=== PATIENT | female | born 1960 | race Caucasian/White ===

== ENCOUNTER 2024-12-08 13:03 | Emergency (ER) | payer MEDICAID, SELFPAY ==
[2024-12-08] VITALS (8 sets, daily range): BP systolic 112–172; BP diastolic 69–99; PULSE 75–90; RESP 15–88; TEMP 36.6–37.1; O2SAT 96–100; BMI 36.0
--- NOTE | 2024-12-08 13:11 | EDNOTE_ITS ---
ED General RME/HPI General Chief complaint: Headache Stated complaint: HEADACHE Time Seen by Provider: 12/08/24 13:08 Arrival date/time: 12/08/24 13:03 Limitations: no limitations RME / HPI RME / HPI narrative: DR. CARRIZALES MAIN ED EVALUATION: 64 year old female with past medical history significant for COPD, current smoker, on home oxygen, and does not exercise presents to the Emergency Department [facility] with complaints of headache and generalized weakness. Family called an ambulance because they had trouble waking the patient up, longer than a minute, which is unusual for her. No shortness of breath or chest pain. No nausea, vomiting, diarrhea, or constipation. No other symptoms reported at this time. Related Data Previous Rx's ?Medication ?Instructions ?Recorded albuterol sulfate 90 mcg/actuation 2 puff inhalation Q 6H PRN 12/08/24 aerosol inhaler shortness of breath or wheez ing #8.5 grams levofloxacin 500 mg tablet 500 mg PO Q24H pneumonia 10 days 12/08/24 #10 tabs Allergies Allergy/AdvReac Type Severity Reaction Status Date / Time No Known Allergies Allergy Verified 12/08/24 13:11 Review of Systems Review of Systems Systems Reviewed: All systems reviewed, normal except as documented Past Medical History Social History SMOKING STATUS: Current every day smoker SUBSTANCE USE: does not use ALCOHOL: Never ED Exam General Limitations: Present no limitations General appearance: Present alert, in no apparent distress and other (well developed, well nourished, mildly pale) Head Head exam: Present atraumatic, normocephalic and normal inspection Eye Eye exam: Present normal appearance, PERRL and EOMI ENT ENT exam: Present normal exam, normal oropharynx and mucous membranes moist Neck Neck exam: Present normal inspection, full ROM and trachea midline Chest Chest inspection: Present symmetric chest wall rise and other (barrel chest) Respiratory Respiratory exam: Present normal lung sounds bilaterally; Absent respiratory distress, wheezes, stridor or accessory muscle use Cardiovascular Cardiovascular exam: Present regular rate, normal rhythm and normal heart sounds Abdominal Exam Abdominal exam: Present soft and normal bowel sounds Extremities Exam Extremities exam: Present normal inspection and full ROM Back Exam Back exam: Present normal inspection and full ROM Neurological Exam Neurological exam: Present alert, oriented X3 and CN II-XII intact Psychiatric Psychiatric exam: Present normal affect and normal mood Skin Skin exam: Present warm, dry, intact and normal color Course Quality Measures none Orders Category Date Time Status Cardiovascular Disease Specialist NOW Care 12/08/24 13:14 Active Continuous Pulse Oximetry NOW Care 12/08/24 13:14 Completed EKG (ED ONLY) *Do not use* NOW Care 12/08/24 13:14 Completed Insert IV NOW Care 12/08/24 13:[address] head/brain wo con Stat Exams 12/08/24 13:14 Completed EKG (ED Only) Stat Exams 12/08/24 13:14 Draft XR chest 1V portable Stat Exams 12/08/24 13:14 Completed CBC Stat Lab 12/08/24 14:05 Completed Comprehensive Metabolic Panel Stat Lab 12/08/24 16:14 Completed Partial Thromboplastin Time Stat Lab 12/08/24 14:05 Completed Prothrombin Time with INR Stat Lab 12/08/24 14:05 Completed Troponin I Stat Lab 12/08/24 16:14 Completed Urinalysis Stat Lab 12/08/24 13:14 Ordered ALBUTEROL RT 3ml [Proventil Rt 3ml] Med 12/08/24 16:13 Discontinued 2.5 mg INH X1 ONE Azithromycin Inj [Zithromax Inj] 500 mg Med 12/09/24 14:00 Pending Sodium Chloride 0.9% 250 ml [Ns] 250 ml IV QDAY@1400 Azithromycin Inj [Zithromax Inj] 500 mg Med 12/08/24 16:30 Active Sodium Chloride 0.9% 250 ml [Ns] 250 ml IV X1 Ketorolac Inj [Toradol Inj] Med 12/08/24 13:14 Discontinued 15 mg IVP X1 ONE Morphine Inj Med 12/08/24 13:14 Discontinued 2 mg IVP X1 ONE Ondansetron Inj [Zofran Inj] Med 12/08/24 13:14 Discontinued 4 mg IVP X1 ONE Sodium Chloride 0.9% 1000 ml [Ns] 1,000 ml Med 12/08/24 13:14 Active IV 100 mls/hr cefTRIAXone [Rocephin] 2 gm Med 12/08/24 16:30 Active SODIUM CHLORIDE 0.9% (Popper) [Ns 0.9% (P)] 50 ml IV X1 cefTRIAXone/D5w 2gm [Rocephin/d5w 2gm] Med 12/09/24 14:00 Active 2 gm in 50 ml IV QDAY@1400 Oxygen Delivery NOW RT 12/08/24 13:14 Active Vital Signs Vital signs: Vital Signs Temperature 98.5 F 12/08/24 13:06 Pulse Rate 79 12/08/24 13:06 Respiratory Rate 18 12/08/24 13:06 Blood Pressure 144/85 H 12/08/24 13:06 Pulse Oximetry (%) 98 12/08/24 13:06 Oxygen Delivery Method Nasal Cannula 12/08/24 13:06 Oxygen Flow Rate 2 12/08/24 13:06 Discharge Plan Plan Patient Disposition: HOME (Self Care) Patient condition on transfer: Stable Prescriptions/Referrals Prescriptions/Med Rec: New levofloxacin 500 mg tablet 500 mg PO Q24H MDD 1 10 Days Qty: 10 0RF albuterol sulfate 90 mcg/actuation HFA aerosol inhaler 2 puff inhalation Q6H MDD 8 puffs PRN (Reason: shortness of breath or wheezing) Qty: 8.5 0RF Referrals: Russell Abad MD [Primary Care Provider] - In 1 week Problem List Clinical Impression: Pneumonia, COPD (chronic obstructive pulmonary disease) Patient/Caregiver Discharge Instructions Education Materials: ED Pneumonia (Adult) Additional Instructions: Please follow-up with your primary care physician within 2-3 days. Return to the Emergency Department as needed. Print Language: Danish Stand Alone Forms: [employer] Award Info., Patient Portal Info Letter MDM Narrative MDM hospital course: IAshli, am scribing for and in the presence of Dr. Carrizales. Patient has bilateral perihilar pneumonia. Patient requests to go home. Will start her on Levaquin. Her O2 sat is 100% on her home oxygen, usual 3 L/min. Will be discharged home with antibiotics. Clinical Information Provided by patient and EMS Medical Records Reviewed [facility] and EMS Meds/Rx Considered, not Ordered None Labs/Rad/Tests considered, not Ordered None Chronic Illness/Social Conditions Add or document further as needed: COPD, current smoker, on home oxygen, and does not exercise. EKG EKG Interpretation narrative: My interpretation: EKG performed at 1440 hours, sinus rhythm, rate 77, no acute changes, VA interval 160 ms, QRS duration 93 ms, QT/QTc 396/428, P-R-T axis 49, 33, 54 Lab Interpretation Labs: see narrative above Imaging Imaging interpretation: see narrative above Radiology reports / interpretation(s): Procedure(s): CT head/brain wo con Accession Number(s): [id number] cc: Del Carrizales MD; Wellington Bragg MD; Russell Abad MD~ Examination: CT brain head without contrast. 2-D sagittal coronal reconstructions Date and time of exam:December 08, 2024, 1401 hrs. Indications: Headaches today Comparison: October 15, 2024 1337 hrs. CTDI: vol (mGy):45.7 DLP: (mGycm):863 Technique: Multiple CT axial sections of the brain have been obtained, 5 mm slice thickness. Contrast has not been administered. 2-D sagittal, coronal reconstructions have been obtained Low dose protocols were performed. One or more of the following dose reduction techniques were used; automated exposure control, adjustment of the mA and/or KV according to patient size, use of iterative reconstruction technique. Findings: No significant ventricular enlargement. Intra-axial or extra-axial hemorrhage density is not seen. No mass effect or midline shift Basal cisterns are not remarkable. Fourth ventricle is midline. Cranial vault intact. Left maxillary sinusitis Impression: Negative for acute hemorrhage, mass effect or midline shift Dictated By: Wellington Bragg MD Procedure(s): XR chest 1V portable Accession Number(s): [id number] cc: Del Carrizales MD; Wellington Bragg MD; Russell Abad MD~ Examination: AP chest single view Technique: AP portable semiupright chest single view Date and time: December 08, 2024, 1346 hrs. Indications: Fever headache today Findings: Suspicious for early bilateral perihilar pneumonia Mild enlargement cardiac contour. Mild vascular congestion. Surgical clips soft tissue neck Impression: Suspicious for early bilateral perihilar pneumonia Dictated By: Wellington Bragg MD Medication Administration(s) Medication Administration History Sodium Chloride (Ns) 1,000 mls @ 100 mls/hr IV .Q10H ONE Stop: 12/08/24 23:13 Last Infusion: 12/08/24 15:42 Dose: Infused Documented By: Admin: 12/08/24 14:15 Dose: 100 mls/hr Documented By: YOSVANY Ceftriaxone Sodium/Dextrose (Rocephin/D5w 2gm) 2 gm in 50 mls @ 100 mls/hr IV QDAY@1400 CARO Stop: 12/16/24 13:59 Azithromycin 500 mg/ Sodium (Chloride) 250 mls @ 250 mls/hr IV QDAY@1400 CARO Stop: 12/16/24 13:59 Ceftriaxone Sodium 2 gm/ (Sodium Chloride) 50 mls @ 100 mls/hr IV X1 ONE Stop: 12/08/24 16:59 Last Admin: 12/08/24 16:50 Dose: 100 mls/hr Documented By: AUSTIN Azithromycin 500 mg/ Sodium (Chloride) 250 mls @ 250 mls/hr IV X1 ONE Stop: 12/08/24 17:29 Discontinued Medications Albuterol (Albuterol Rt 2.5 Mg/3 Ml Nebu) 2.5 mg INH X1 ONE Stop: 12/08/24 16:14 Last Admin: 12/08/24 16:21 Dose: Not Given Documented By: CLAUDIA Non-Admin Reason: Discontinued Ketorolac Tromethamine (Ketorolac Inj 30 Mg/Ml Vial) 15 mg IVP X1 ONE Stop: 12/08/24 13:15 Last Admin: 12/08/24 14:15 Dose: 15 mg Documented By: YOSVANY Morphine Sulfate (Morphine Sulf Inj 10 Mg/Ml Vial) 2 mg IVP X1 ONE Stop: 12/08/24 13:15 Last Admin: 12/08/24 14:16 Dose: 2 mg Documented By: YOSVANY Ondansetron HCl (Ondansetron Inj 2 Mg/Ml Inj 2 Ml) 4 mg IVP X1 ONE; Protocol Stop: 12/08/24 13:15 Last Admin: 12/08/24 14:15 Dose: 4 mg Documented By: YOSVANY Diagnosis Differential diagnosis: TIA, migraine, dehydration, electrolyte imbalance Most likely dx, and/or detailed dx discussion: Bilateral perihilar pneumonia Dispositon Disposition: Discharge Home
--- NOTE | 2024-12-08 13:14 | EKG_ITS ---
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
--- NOTE | 2024-12-08 13:14 | XR_ITS ---
Examination: CT brain head without contrast. 2-D sagittal coronal reconstructions Date and time of exam:December 08, 2024, 1401 hrs. Indications: Headaches today Comparison: October 15, 2024 1337 hrs. CTDI: vol (mGy):45.7 DLP: (mGycm):863 Technique: Multiple CT axial sections of the brain have been obtained, 5 mm slice thickness. Contrast has not been administered. 2-D sagittal, coronal reconstructions have been obtained Low dose protocols were performed. One or more of the following dose reduction techniques were used; automated exposure control, adjustment of the mA and/or KV according to patient size, use of iterative reconstruction technique. Findings: No significant ventricular enlargement. Intra-axial or extra-axial hemorrhage density is not seen. No mass effect or midline shift Basal cisterns are not remarkable. Fourth ventricle is midline. Cranial vault intact. Left maxillary sinusitis Impression: Negative for acute hemorrhage, mass effect or midline shift
--- NOTE | 2024-12-08 13:14 | XR_ITS ---
Examination: AP chest single view Technique: AP portable semiupright chest single view Date and time: December 08, 2024, 1346 hrs. Indications: Fever headache today Findings: Suspicious for early bilateral perihilar pneumonia Mild enlargement cardiac contour. Mild vascular congestion. Surgical clips soft tissue neck Impression: Suspicious for early bilateral perihilar pneumonia
[2024-12-08] MEDS: SODIUM CHLORIDE 0.9% 1000 ML 1,000 ML 100 ML IV (14:15)
[2024-12-08] MEDS: KETOROLAC INJ 30 MG/ML VIAL 15 MG IVP (14:15)
[2024-12-08] MEDS: ONDANSETRON INJ 2 MG/ML INJ 2 ML 4 MG IVP (14:15)
[2024-12-08 14:16] LABS: Basophils # (Auto) 0.1 Thou/mm3 (0.0-0.2); Basophils % (Auto) 1 % (0-2.5); Eosinophils # (Auto) 0.4 Thou/mm3 (0.0-0.5); Eosinophils % (Auto) 5 % (0-10); Hematocrit 45.7 % (36.0-46.0); Hemoglobin 14.9 g/dL (12.0-16.0); Immature Granulocytes % (Auto) 0 % (0-0); Immature Granulocytes Auto 0.02 Thou/mm3 (0.00-0.00); Lymphocytes # (Auto) 2.6 Thou/mm3 (1.0-4.8); Lymphocytes % (Auto) 30 % (10-50); Mean Corpuscular HGB Conc 32.6 g/dl (31.0-37.0); Mean Corpuscular Volume 83 fL (80-100); Monocytes # (Auto) 0.7 Thou/mm3 (0.0-0.8); Monocytes % (Auto) 8 % (0-12); Neutrophils # (Auto) 4.9 Thou/mm3 (1.8-7.7); Neutrophils % (Auto) 57 % (37-80); Nucleated Red Blood Cell % 0 /100 WBC (0); Platelet Count 298 Thou/mm3 (140-440); RDW Standard Deviation 46.9 fL (36.4-46.3); Red Blood Count 5.52 Miln/mm3 (4.00-5.20); White Blood Count 8.7 Thou/mm3 (3.6-11.0)
[2024-12-08] MEDS: MORPHINE SULF INJ 10 MG/ML VIAL 2 MG IVP (14:16)
[2024-12-08 14:45] LABS: INR 1.1 (0.9-1.3); Partial Thromboplastin Time 26.8 Seconds (22.0-36.0); Prothrombin Time 11.5 Seconds (9.0-12.2)
[2024-12-08 16:45] LABS: Alanine Aminotransferase 25 U/L (10-49); Albumin, Serum 4.5 gm/dL (3.4-4.8); Albumin/Globulin Ratio 1.7 (1.2-2.2); Alkaline Phosphatase 83 U/L (46-116); Anion Gap 8 (7-16); Aspartate Amino Transferase 23 U/L (0-34); BUN/Creatinine Ratio 13 Ratio (12-20); Bilirubin,Total 0.3 mg/dL (0.3-1.2); Blood Urea Nitrogen 10 mg/dL (9-23); Calcium 9.1 mg/dL (8.3-10.6); Calcium (Corrected) 9.1 mg/dL (8.5-10.1); Carbon Dioxide 25.8 mMol/L (20.0-31.0); Chloride 104 mMol/L (98-107); Creatinine (Component) 0.8 mg/dL (0.6-1.3); Estimated Creatinine Clearance 81.6 mL/min (>60); Globulin 2.6 gm/dL (2.3-3.5); Glucose 96 mg/dL (74-106); Osmolality,Calculated 274 (275-295); Potassium 5.2 mMol/L (3.4-5.1); Sodium 138 mMol/L (136-145); Total Protein 7.1 gm/dL (5.7-8.2); Troponin I < 0.020 ng/mL (0.0-0.045); eGFR > 60 See Note
[2024-12-08] MEDS: cefTRIAXone 2 GM in SODIUM CHLORIDE 0.9% (Popper) 50 ML IV (16:50)
[2024-12-08] MEDS: AZITHROMYCIN INJ 500 MG in SODIUM CHLORIDE 0.9% 250 ML 250 ML 250 MG IV (18:08)
[2024-12-08] MEDS: ACETAMINOPHEN w/COD 300-30 TABLET 2 TAB PO (18:42)
== END 2024-12-08 19:20 | disposition home or self-care (01) ==
PROVIDERS: Emergency Provider Family Medicine; PCP Family Medicine
DX: J18.9 Pneumonia, unspecified organism (principal); J44.0 Chronic obstructive pulmonary disease with (acute) lower respiratory infection; R51.9 Headache, unspecified
CPT/HCPCS: 36415; 70450; 71045; 80053; 81001; 84484; 85025; 85610; 85730; 87040; 93005; 96361; 96365; 96367; 96375; 99284; J0456; J0696; J1885; J2270; J2405; J7030; J7050; A9270

== ENCOUNTER → 2025-01-24 | Outpatient (CLI) | payer MEDICAID, SELFPAY ==
--- NOTE | 2025-01-24 14:30 | XR_ITS ---
Examination: CT chest, without intravenous contrast. Sagittal and coronal 2-D reconstructions. Exam date and time: February 03, 2025 at 1453 hours INDICATIONS: Smoking history years CTDI:vol (mGy) 20.6 DLP: (mGycm) 710 Technique: Multiple 3.0 mm axial sections of the chest to been obtained. Bone and lung density settings are obtained. Sagittal and coronal 2-D reconstructions have been obtained. Low dose protocols were performed. One or more of the following dose reduction techniques were used; automated exposure control, adjustment of the mA and/or KV according to patient size, use of iterative reconstruction technique. Findings: Thoracic aortic calcification no aneurysmal dilatation Main pulmonary artery segment 30 mm Mild to moderate pulmonary fibrosis Fat pad at the right cardiac rate angle Bronchiectasis left lower lobe No katerin pulmonary mass lesion No focal liver or splenic lesion Contracted gallbladder IMPRESSION: Mild to moderate pulmonary fibrosis Significant bronchiectasis left lower lobe Consider 6 month follow-up CT chest without contrast
== END | disposition home or self-care (01) ==
LOC: CCTX 14:38
PROVIDERS: PCP Student in an Organized Health Care Education/Training Program; Referring Provider Internal Medicine; Visit Provider Internal Medicine
DX: J84.10 Pulmonary fibrosis, unspecified (principal); J47.9 Bronchiectasis, uncomplicated; Z87.891 Personal history of nicotine dependence
CPT/HCPCS: 71271